=== PATIENT | female | born 2000 | race Hispanic/Latino ===

== ENCOUNTER 2021-12-29 00:23 | Emergency (ER) | payer SELFPAY ==
[~2021-12-29] VITALS: Ht 167.6 cm; Wt 75.0 kg
[2021-12-29 00:24] VITALS: BP 133/78
[2021-12-29] MEDS ORDERED: CVS1CRE47 TOP (15:46)
[2021-12-29] MEDS ORDERED: HYDR-3363 PO (17:16)
[2021-12-29] MEDS ORDERED: HYDR1CRE30 TOP (17:16)
[2021-12-29] MEDS ORDERED: ANEC4CRE3 TOP (17:16)
== END 2021-12-29 02:01 | disposition left against medical advice (07) ==
LOC: M ED 00:23
DX: Z53.21 Procedure and treatment not carried out due to patient leaving prior to being seen by health care provider (principal)

== ENCOUNTER 2021-12-29 15:35 | Emergency (ER) | payer OTHER, SELFPAY ==
[~2021-12-29] VITALS: Ht 167.6 cm; Wt 70.9 kg
[2021-12-29 15:35] VITALS: BP 134/79
[2021-12-29] MEDS ORDERED: CVS1CRE47 TOP (15:46)
[2021-12-29] MEDS ORDERED: LIDOCAINE 4% CREAM 5GM (LMX4) TOP ONE (17:10)
[2021-12-29] MEDS ORDERED: predniSONE 20 MG TAB PO ONE (17:10)
[2021-12-29] MEDS ORDERED: HYDROCORTISONE 1% OINTMENT 30GM TOP STA (17:10)
[2021-12-29] MEDS ORDERED: HYDR-3363 PO (17:16)
[2021-12-29] MEDS ORDERED: ANEC4CRE3 TOP (17:16)
[2021-12-29] MEDS ORDERED: HYDR1CRE30 TOP (17:16)
== END 2021-12-29 17:56 | disposition home or self-care (01) ==
LOC: M ED 15:35
DX: L25.9 Unspecified contact dermatitis, unspecified cause (principal)
CPT/HCPCS: 99282; J7512

== ENCOUNTER → 2022-05-27 | Outpatient (REF) | payer OTHER ==
[~2022-05-27] MED LIST: ANEC4CRE3 TOP; CVS1CRE47 TOP; HYDR-3363 PO; HYDR1CRE30 TOP
== END ==
LOC: M LAB REF 17:09
PROVIDERS: ATTEND Internal Medicine Critical Care Medicine
DX: U09.9 Post COVID-19 condition, unspecified (principal)

== ENCOUNTER → 2022-07-15 | Outpatient (CLI) | payer OTHER | LOC: M CARPUL 08:50 | PROVIDERS: ATTEND Internal Medicine Critical Care Medicine | DX: R06.00 Dyspnea, unspecified (principal) ==